=== PATIENT | male | born 1970 | race Caucasian/White ===

== ENCOUNTER 2023-07-12 17:07 | Emergency (ER) | payer BC, SELFPAY ==
--- NOTE | ~2023-07-12 | XR_ITS ---
EXAMINATION: XR shoulder LT min 2V DATE: 07/12/2023 17:37 INDICATION: Left shoulder pain post fall TECHNIQUE: AP and transscapular Y views of the left shoulder were obtained. COMPARISON: None FINDINGS: Oblique fracture extending from the posterolateral metaphyseal region of the proximal left humerus ce phalad and anteromedially which appears to involve at least a portion of the articular cortex. There is up to 3-4 mm step-off at the articular cortex. Humeral head remains normally aligned with respect to the glenoid but with mild widening of the cephalad joint space suggesting a presence of a hemarthr osis. No other fractures identified. Mild left acromioclavicular osteoarthritis. Visualized portion o f the left lung are clear. IMPRESSION: 1 part intra-articular fracture of the left humeral head and neck with likely small associated hemart hrosis. Reviewed, dictated and finalized at location [facility] IMPRESSION: 1 part intra-articular fracture of the left humeral head and neck with likely s mall associated hemarthrosis.
--- NOTE | 2023-07-12 17:09 | ED.FALL ---
HPI - Fall General Chief Complaint: Extremity Injury, Upper Stated Complaint: Fall Time Seen by Provider: 07/12/23 17:08 Source: patient Mode of arrival: ambulatory Limitations: no limitations History of Present Illness HPI Narrative: Nirmal is a 52-year-old male patient presenting to the clinic today with complaints of left shoulder pain after falling last night. He reports he was trying to put on his pajama pants and lost his balance and fell onto his left shoulder. Is having pain to the posterior shoulder anterior shoulder as well as the proximal humerus. Already has an arm sling in place to the left arm. Denies hitting his head or any loss of consciousness. Denies any neck pain. Related Data Home Medications Medication Instructions Recorded Confirmed bupropion HCl 150 mg 24 hr tablet, 150 mg PO DAILY 07/12/23 07/12/23 extended release cephalexin 500 mg capsule 500 mg PO BID 07/12/23 07/12/23 flash glucose sensor (FreeStyle 07/12/23 07/12/23 [place]de 2 Sensor kit) hydroxyzine HCl 25 mg tablet 25 mg PO DAILY 07/12/23 07/12/23 methylphenidate HCl 10 mg tablet 5 mg PO DIRECTED 07/12/23 07/12/23 tadalafil 10 mg tablet 10 mg PO DIRECTED 07/12/23 07/12/23 tirzepatide 5 mg/0.5 mL 5 mg subcut DIRECTED 07/12/23 07/12/23 subcutaneous pen injector (Mounjaro) Allergies Allergy/AdvReac Type Severity Reaction Status Date / Time vancomycin Allergy Redness of Verified 07/12/23 17:20 Skin Review of Systems Review of Systems: Pertinent positives per HPI. Patient denies any fever, chills, rash, headache, visual changes, dizziness, cough, runny nose, sore throat, shortness of breath, chest pain, palpitations, nausea, vomiting, diarrhea, constipation, abdominal pain, or any urinary issues. [facility] Family History Family History Grandparent Family history of Alzheimer's disease Social History Social History Smoking status: Never smoker Alcohol intake: never Comments At the time of my signature, I reviewed and agree with the nursing past medical, surgical, social, and family history. There is no relevant family history pertinent to the patient complaint. Exam Narrative: General: Well-developed, well nourished, in no apparent distress Head: Normocephalic, atraumatic. Cardio: Regular rate and rhythm, s1 and s2 normal, no murmur appreciated. Resp: Clear to auscultation bilaterally, no rhonchi, rales, wheezing or rubs. Musculoskeletal: No obvious deformity, tender to palpation to the anterior, posterior, lateral shoulder, and to the proximal humerus, pain is exacerbated with raising his left arm, limited range of motion due to pain, muscle strength strong and equal, peripheral pulse strong, no edema, no cyanosis, normal gait and station Course Course Emergency Course: Portions of this record may have been created with voice recognition software. Level of Care: Express Care Visit Vital Signs Vital signs: Vital signs reviewed MDM - Fall MDM Narrative Medical decision making narrative: At the time of visit patient is resting comfortably on the exam table. Patient appears to be nontoxic. X-ray left shoulder was performed and shows a proximal oblique fracture of the radial head and neck with 4mm step-off deformity. Possible hemarthrosis in the joint. Contacted Dr. Leonard- ortho consult-he stated that patient would need surgery [place]. States that he can either follow-up with his PCP for referral or referral can be given. Contacted [place] transfer line and attempted to consult Orthopedic on-call however Valorie from the access line recommend patient see his PCP and get a [facility] orthopedic referral. Patient is already wearing arm sling. Sensation circulation and motion of the left hand is within normal limits with a strong r
[2023-07-12 17:24] VITALS: BP 153/80; PULSE 91; RESP 20; TEMP 37.7; O2SAT 100
== END 2023-07-12 18:55 | disposition home or self-care (01) ==
PROVIDERS: Emergency Provider Nurse Practitioner Family
DX: S42.292A Other displaced fracture of upper end of left humerus, initial encounter for closed fracture (principal); W19.XXXA Unspecified fall, initial encounter
CPT/HCPCS: 73030; 99213; 99214; G0463